=== PATIENT | male | born 1960 | race Native Hawaiian/Other Pacific Islander ===

== ENCOUNTER 2017-04-27 11:36 | Emergency (ER) | payer SELFPAY ==
--- NOTE | 2017-04-27 12:31 | Emergency Department Report ---
Chief Complaint: Medical Clearance Stated Complaint: ABD PAIN AFTER ETOH USE Time Seen by Provider: 04/27/17 12:28 - HPI History of Present Illness: PT states he drank 3 beers and ate food at a constitution party. PT reports abd pain and vomiting after. PT was seen by PCP and sent to ED to eval his liver due to jaundice - ROS Review of Systems: - eye pain - draiange PT denies abd pain now - Exam Vital Signs: Vital Signs 04/27/17 11:57 Temperature 97.4 F L Pulse Rate 94 H Respiratory 16 Rate Blood Pressure 123/78 O2 Sat by Pulse 97 Oximetry Physical Exam: abd rounded, not ttp MSE screening note: Focused history and physical exam performed. Due to findings the following was ordered: labs, us ED Disposition for MSE Condition: Stable
[2017-04-27 13:10] LABS: Basophils % (Auto) 0.1 % (0.0-1.8); Eosinophils % (Auto) 0.4 % (0.0-4.3); Hematocrit 46.9 % (35.5-45.6); Hemoglobin 15.8 gm/dl (11.8-15.2); Mean Corpuscular HGB Conc 34 % (32-34); Mean Corpuscular Hemoglobin 30 pg (28-32); Mean Corpuscular Volume 89 fl (84-94); Red Blood Count 5.28 M/mm3 (3.65-5.03); Red Cell Distribution Width 13.5 % (13.2-15.2); White Blood Count 10.3 K/mm3 (4.5-11.0)
[2017-04-27 13:27] LABS: Partial Thromboplastin Time 25.6 Sec. (24.2-36.6)
[2017-04-27 13:37] LABS: Alanine Aminotransferase 545 units/L (7-56); Albumin 3.9 g/dL (3.9-5); Albumin/Globulin Ratio 0.9 %; Alkaline Phosphatase 290 units/L (35-129); BUN/Creatinine Ratio 21; Blood Urea Nitrogen 17 mg/dL (9-20); Calcium 9.2 mg/dL (8.4-10.2); Carbon Dioxide 24 mmol/L (22-30); Glucose 107 mg/dL (75-100); Lipase 12 units/L (13-60); Sodium 137 mmol/L (137-145); Total Protein 8.1 g/dL (6.3-8.2)
[2017-04-27 13:38] LABS: Anion Gap 20 mmol/L; Chloride 96.3 mmol/L (98-107); Potassium 3.6 mmol/L (3.6-5.0)
[2017-04-27 13:59] LABS: Platelet Count 191 K/mm3 (140-440)
--- NOTE | 2017-04-27 14:46 | Ultrasound Report ---
Sonogram right upper quadrant: History: Jaundice. Findings: Patient is history of cholecystectomy. Liver appears normal. No intrahepatic or extrahepatic duct dilatation. Common bile duct diameter 1.6 mm. Right kidney 10.1 x 4.6 x 5 cm. Cortical thickness 1.2 cm. Pancreas not visualized. Impression: Essentially negative sonogram.
--- NOTE | 2017-04-28 01:26 | Emergency Department Report ---
ED General Adult HPI - General Chief complaint: Medical Clearance Stated complaint: ABD PAIN AFTER ETOH USE Time Seen by Provider: 04/27/17 12:28 Source: patient Mode of arrival: Ambulatory Limitations: Language Barrier (this provider is conversational in Korean) - History of Present Illness Initial comments: This is a 56-year-old male, who was previously unknown to this provider, sent to the ER by his outpatient physician for evaluation of hepatitis. Patient currently denies headache, neck pain, chest pain, abdominal pain or shortness of breath. He did reports previous abdominal pain which has since resolved. The pain was in the right upper quadrant, did not radiate anywhere, patient indicates no exacerbating or relieving factors. Patient endorses recreational alcohol consumption, but does not report consuming regularly, and he denies recent ingestion of acetaminophen. -: Gradual Radiation: abdomen Consistency: now resolved Improves with: none Worsens with: none Associated Symptoms: denies other symptoms - Related Data Previous Rx's Medication Instructions Recorded Last Taken Type Dicyclomine [Bentyl] 10 mg PO QID PRN #20 capsule 04/28/17 Unknown Rx Ondansetron [Zofran Odt] 4 mg PO Q6HR PRN #20 tab.rapdis 04/28/17 Unknown Rx Allergies Allergy/AdvReac Type Severity Reaction Status Date / Time No Known Allergies Allergy Verified 04/27/17 12:02 ED Review of Systems ROS: Stated complaint: ABD PAIN AFTER ETOH USE Other details as noted in HPI Constitutional: denies: fever Eyes: denies: vision change ENT: denies: epistaxis Respiratory: denies: cough, shortness of breath Cardiovascular: denies: chest pain Gastrointestinal: abdominal pain Genitourinary: denies: dysuria Musculoskeletal: denies: back pain Skin: denies: lesions Neurological: weakness Psychiatric: anxiety ED Past Medical Hx - Past Medical History Previous Medical History?: No - Surgical History Past Surgical History?: Yes Additional Surgical History: right lung - Social History Smoking Status: Never Smoker Substance Use Type: Alcohol - Medications Home Medications: Home Medications Medication Instructions Recorded Confirmed Last Taken Type Dicyclomine [Bentyl] 10 mg PO QID PRN #20 capsule 04/28/17 Unknown Rx Ondansetron [Zofran Odt] 4 mg PO Q6HR PRN #20 tab.rapdis 04/28/17 Unknown Rx ED Physical Exam - General Limitations: Language Barrier General appearance: alert, in no apparent distress, anxious - Head Head exam: Present: atraumatic, normocephalic - Eye Eye exam: Present: normal appearance, EOMI, scleral icterus. Absent: nystagmus - ENT ENT exam: Present: normal exam, normal orophraynx, mucous membranes moist, normal external ear exam - Neck Neck exam: Present: normal inspection, full ROM. Absent: tenderness, meningismus - Respiratory Respiratory exam: Present: normal lung sounds bilaterally. Absent: respiratory distress, wheezes, rales, rhonchi, stridor, chest wall tenderness, accessory muscle use, decreased breath sounds, prolonged expiratory - Cardiovascular Cardiovascular Exam: Present: regular rate, normal rhythm, normal heart sounds. Absent: bradycardia, tachycardia, irregular rhythm, systolic murmur, diastolic murmur, rubs, gallop - GI/Abdominal GI/Abdominal exam: Present: soft, tenderness, normal bowel sounds, other (right upper quadrant tenderness). Absent: distended, guarding, rebound, rigid, pulsatile mass - Rectal Rectal exam: Present: deferred - Extremities Exam Extremities exam: Present: normal inspection, full ROM, normal capillary refill. Absent: pedal edema, joint swelling, calf tenderness - Back Exam Back exam: Present: normal inspection, full ROM. Absent: tenderness, CVA tenderness (L), muscle spasm, paraspinal tenderness, vertebral tenderness - Neurological Exam Neurological exam: Present: alert, other (Extraocular movements intact. Tongue midline. No facial droop. Facial sensation intact to light touch in the V1, V2 , V3 distribution bilaterally. 5 and 5 strength in 4 extremities.. Sensation is intact to light touch in 4 extremities.). Absent: motor sensory deficit - Psychiatric Psychiatric exam: Present: normal affect, normal mood - Skin Skin exam: Present: warm, other (jaundiced). Absent: rash ED Course Vital Signs 04/27/17 04/28/17 04/28/17 11:57 01:52 01:55 Temperature 97.4 F L 98.6 F Pulse Rate 94 H 94 H Respiratory 16 16 16 Rate Blood Pressure 123/78 Blood Pressure 110/70 [Right] O2 Sat by Pulse 97 100 100 Oximetry - Reevaluation(s) Reevaluation #1: 04/28/17 03:55 CT scan of the abdomen and pelvis is negative, acetaminophen levels pending Reevaluation #2: 04/28/17 05:02 Tylenol level negative. Resting comfortably. No distress. Patient to be discharged with pain medication, nausea medication, instructions to follow up with primary care versus gastroenterology. Belly soft arm. Examination ED Medical Decision Making - Lab Data Result diagrams: 04/27/17 12:45 04/27/17 12:45 Vital Signs 04/27/17 04/28/17 04/28/17 11:57 01:52 01:55 Temperature 97.4 F L 98.6 F Pulse Rate 94 H 94 H Respiratory 16 16 16 Rate Blood Pressure 123/78 Blood Pressure 110/70 [Right] O2 Sat by Pulse 97 100 100 Oximetry Lab Results 04/27/17 04/27/17 04/27/17 Range/Units 12:45 12:45 12:45 WBC 10.3 (4.5-11.0) K/mm3 RBC 5.28 H (3.65-5.03) M/mm3 Hgb 15.8 H (11.8-15.2) gm/dl Hct 46.9 H (35.5-45.6) % MCV 89 (84-94) fl MCH 30 (28-32) pg MCHC 34 (32-34) % RDW 13.5 (13.2-15.2) % Plt Count 191 (140-440) K/mm3 Lymph % (Auto) 7.6 L (13.4-35.0) % Ritchie % (Auto) 11.1 H (0.0-7.3) % Eos % (Auto) 0.4 (0.0-4.3) % Baso % (Auto) 0.1 (0.0-1.8) % Lymph # 0.8 L (1.2-5.4) K/mm3 Ritchie # 1.2 H (0.0-0.8) K/mm3 Eos # 0.0 (0.0-0.4) K/mm3 Baso # 0.0 (0.0-0.1) K/mm3 Seg Neutrophils % 80.8 H (40.0-70.0) % Seg Neutrophils # 8.4 H (1.8-7.7) K/mm3 PT 13.7 (12.2-14.9) Sec. INR 1.00 (0.87-1.13) APTT 25.6 (24.2-36.6) Sec. Sodium 137 (137-145) mmol/L Potassium 3.6 (3.6-5.0) mmol/L Chloride 96.3 L (98-107) mmol/L Carbon Dioxide 24 (22-30) mmol/L Anion Gap 20 mmol/L BUN 17 (9-20) mg/dL Creatinine 0.8 (0.8-1.5) mg/dL Estimated GFR > 60 ml/min BUN/Creatinine Ratio 21 % Glucose 107 H (75-100) mg/dL Calcium 9.2 (8.4-10.2) mg/dL Total Bilirubin 6.50 H (0.1-1.2) mg/dL AST 85 H (5-40) units/L ALT 545 H (7-56) units/L Alkaline Phosphatase 290 H (35-129) units/L Total Protein 8.1 (6.3-8.2) g/dL Albumin 3.9 (3.9-5) g/dL Albumin/Globulin Ratio 0.9 % Lipase 12 L (13-60) units/L Hepatitis A IgM Ab (NonReactive) Hep Bs Antigen (Negative) Hep B Core IgM Ab (NonReactive) Hepatitis C Antibody (NonReactive) 04/27/17 Range/Units 14:52 WBC (4.5-11.0) K/mm3 RBC (3.65-5.03) M/mm3 Hgb (11.8-15.2) gm/dl Hct (35.5-45.6) % MCV (84-94) fl MCH (28-32) pg MCHC (32-34) % RDW (13.2-15.2) % Plt Count (140-440) K/mm3 Lymph % (Auto) (13.4-35.0) % Ritchie % (Auto) (0.0-7.3) % Eos % (Auto) (0.0-4.3) % Baso % (Auto) (0.0-1.8) % Lymph # (1.2-5.4) K/mm3 Ritchie # (0.0-0.8) K/mm3 Eos # (0.0-0.4) K/mm3 Baso # (0.0-0.1) K/mm3 Seg Neutrophils % (40.0-70.0) % Seg Neutrophils # (1.8-7.7) K/mm3 PT (12.2-14.9) Sec. INR (0.87-1.13) APTT (24.2-36.6) Sec. Sodium (137-145) mmol/L Potassium (3.6-5.0) mmol/L Chloride (98-107) mmol/L Carbon Dioxide (22-30) mmol/L Anion Gap mmol/L BUN (9-20) mg/dL Creatinine (0.8-1.5) mg/dL Estimated GFR ml/min BUN/Creatinine Ratio % Glucose (75-100) mg/dL Calcium (8.4-10.2) mg/dL Total Bilirubin (0.1-1.2) mg/dL AST (5-40) units/L ALT (7-56) units/L Alkaline Phosphatase (35-129) units/L Total Protein (6.3-8.2) g/dL Albumin (3.9-5) g/dL Albumin/Globulin Ratio % Lipase (13-60) units/L Hepatitis A IgM Ab Non-reactive (NonReactive) Hep Bs Antigen Non-reactive (Negative) Hep B Core IgM Ab Non-reactive (NonReactive) Hepatitis C Antibody Non-reactive (NonReactive) - Radiology Data Radiology results: report reviewed, image reviewed Vital precaution ultrasound negative for acute disease - Medical Decision Making Differential diagnosis: Hepatitis, idiopathic hepatitis, obstructive hepatitis, cancer/tumor/malignancy Assessment and plan: 56-year-old male with jaundice, abdominal discomfort, now resolved, transaminitis that is elevated, elevated direct bilirubin, minimal tenderness at this time, CT scan of the abdomen and pelvis is pending. Patient will be treated with nonnarcotic pain medication at this time. Patient does report taking omeprazole, he is a casual alcohol consumer but not excessive, and denies acetaminophen intake. Critical care attestation.: If time is entered above; I have spent that time in minutes in the direct care of this critically ill patient, excluding procedure time. ED Disposition Clinical Impression: Transaminitis Disposition: DC-01 TO HOME OR SELFCARE Is pt being admited?: No Does the pt Need Aspirin: No Condition: Good Instructions: Viral Hepatitis C (ED) Additional Instructions: Follow up with a primary care doctor or portfolio consultant within the next 7-10 days. Take the pain medication and nausea medication as directed, avoid consumption of alcohol, and acetaminophen. Return to the ER right away with new pain, worsened pain, migration of pain, fevers, chills, lethargy, irritability, vomiting blood, defecating blood, inability to tolerate liquid feeds. Do not take Tylenol either. Seguimiento con un mdico de atencin primaria o gastroenterlogo dentro de los prximos 7-[address] huff. [place] el medicamento para el dolor y los medicamentos para las nuseas segn lo indicado, evite el consumo de alcohol y el paracetamol. Regreso al ER de inmediato con dolor nuevo, dolor empeorado, migracin de dolor , fiebres, escalofros, letargo, irritabilidad, vmitos de taryn, taryn defecante, incapacidad para tolerar alimentos lquidos. No tome Tylenol tampoco. Referrals: PRIMARY CAREMD [Primary Care Provider] - 3-5 Days FRANDY NAVA MD [Staff Physician] - 3-5 Days INGRID REDDING MD [Staff Physician] - 3-5 Days [facility] [Provider Group] - 3-5 Days [facility] [Provider Group] - 3-5 Days
[2017-04-28] MEDS ORDERED: NACL 0.9% 1000 ML 1,000 ML IV ONE (01:37)
[2017-04-28 01:54] VITALS: BP 110/70
[2017-04-28] MEDS ORDERED: BENTYL PO ONE (03:06)
[2017-04-28] MEDS ORDERED: CARAFATE PO ONE (03:06)
--- NOTE | 2017-04-28 03:36 | Cat Scan Report ---
FINAL REPORT EXAM: CT ABDOMEN PELVIS W CON HISTORY: painless jaundice TECHNIQUE: Routine axial imaging was obtained of the abdomen and pelvis following the intravenous injection of 100 cc of Omnipaque 350. Oral contrast was not administered. There are no previous studies available for comparison. FINDINGS: The lung bases do not show any localized infiltrates or effusions. The gallbladder has been removed. The common bile duct measures 8.8 millimeters in diameter. There is no evidence of intrahepatic ductal dilatation. In the left hepatic lobe there is an 8.5 millimeter low-attenuation focus. With this represents a small cyst or hemangioma is uncertain. It is too small to characterize. The spleen, adrenal glands and pancreas appear normal. The kidneys enhance normally. The vascular structures enhance normally. The bowel loops are normal in caliber. There is no evidence of free fluid or adenopathy. The appendix is not enlarged. In the pelvis there are a few uncomplicated sigmoid diverticula. The prostate gland and bladder appear normal. The skeletal structures reveal very mild arthritic changes in the lower lumbar spine. IMPRESSION: Cholecystectomy. No evidence of biliary tract obstruction. 0.5 millimeter low-attenuation focus in the left hepatic lobe possibly representing a small cyst or hemangioma. The lesion is too small to characterize. No acute process in the abdomen and pelvis otherwise.
[2017-04-28 03:45] LABS: Bilirubin,Direct 3.3 mg/dL (0-0.2); Bilirubin,Indirect 1.1 mg/dL; Bilirubin,Total 4.4 mg/dL (0.1-1.2)
[2017-04-28] MEDS ORDERED: NACL 0.9% 1000 ML 1,000 ML ONE (04:54)
== END 2017-04-28 06:20 | disposition home or self-care (01) ==
LOC: ED 11:36
DX: R74.0 Nonspecific elevation of levels of transaminase and lactic acid dehydrogenase [LDH] (principal); R10.9 Unspecified abdominal pain; Z79.899 Other long term (current) drug therapy
CPT/HCPCS: 36415; 74177; 76705; 80053; 80074; 82248; 83690; 85025; 85610; 85730; 96360; 99284; G0480; J7030; Q9967; 80320

== ENCOUNTER 2017-05-07 23:49 | Inpatient (IN) | payer OTHER ==
[2017-05-08 01:07] LABS: Hematocrit 40.7 % (35.5-45.6); Hemoglobin 13.8 gm/dl (11.8-15.2); Mean Corpuscular HGB Conc 34 % (32-34); Mean Corpuscular Hemoglobin 31 pg (28-32); Mean Corpuscular Volume 90 fl (84-94); Platelet Count 310 K/mm3 (140-440); Red Blood Count 4.51 M/mm3 (3.65-5.03); Red Cell Distribution Width 13.3 % (13.2-15.2); White Blood Count 12.8 K/mm3 (4.5-11.0)
[2017-05-08 01:26] LABS: Alanine Aminotransferase 636 units/L (7-56); Albumin 3.6 g/dL (3.9-5); Albumin/Globulin Ratio 1.1 %; Alkaline Phosphatase 359 units/L (35-129); Anion Gap 18 mmol/L; BUN/Creatinine Ratio 16; Blood Urea Nitrogen 11 mg/dL (9-20); Calcium 8.7 mg/dL (8.4-10.2); Carbon Dioxide 25 mmol/L (22-30); Chloride 100.3 mmol/L (98-107); Glucose 132 mg/dL (75-100); Lipase 121 units/L (13-60); Potassium 3.8 mmol/L (3.6-5.0); Sodium 139 mmol/L (137-145); Total Protein 6.8 g/dL (6.3-8.2)
[2017-05-08 05:35] LABS: Basophils % (Manual) 0 % (0.0-1.8); Blastocytes % (Manual) 0 %; Eosinophils % (Manual) 0 % (0.0-4.3)
[2017-05-08 05:36] LABS: Anisocytosis 1+; Diff Status Complete
[2017-05-08 08:59] LABS: Bilirubin,Urine MOD (Negative); Blood,Urine NEG (Negative); Ketones,Urine TR mg/dL (Negative); Leukocyte Esterase,Urine NEG (Negative); Mucus,Urine FEW /HPF; Nitrite,Urine NEG (Negative); Protein,Urine <15 mg/dL mg/dL (Negative); RBC,Urine < 1.0 /HPF (0.0-6.0)
[2017-05-08] MEDS ORDERED: MORPHINE IV ONE (10:12)
[2017-05-08] MEDS ORDERED: ZOFRAN IV ONE (10:12)
[2017-05-08] MEDS ORDERED: MORPHINE ONE (10:22)
--- NOTE | 2017-05-08 11:15 | Emergency Department Report ---
ED Abdominal Pain HPI - General Chief Complaint: Abdominal Pain Stated Complaint: ABD PAIN Time Seen by Provider: 05/08/17 09:44 Source: patient Mode of arrival: Stretcher Limitations: Language Barrier - History of Present Illness Initial Comments: 56-year-old Tanzanian-speaking male with a past medical history of previous cholecystectomy presents to the hospital complains of abdominal pain times several days. Pain is in epigastric area and left upper quadrant, intermittent , sharp, worse with palpation. Positive nausea without vomiting. Patient has noticed yellow discoloration to his eyes status continued since his last visit to the ED. Patient was here 10 days ago for abdominal pain and jaundice. Was seen and evaluated by ER physician. Patient was noted to have elevated LFTs including bilirubin. Pt denied tylenol use. CT abdomen and pelvis with IV contrast revealed previous cholecystectomy with no evidence of biliary tract obstruction, a 0.5 mm low attenuation focus in the left hepatic lobe possibly representing a small cyst or hemangioma. No acute process was identified. Abdominal ultrasound was negative. Patient had normal coags and platelet count. Patient also had a negative hepatitis panel. He states he had alcohol within the last 2 weeks to celebrate a friend's birthday but denies daily use or dependence. Patient received 1 L normal saline and 5 mg of morphine in route to the hospital. Severity scale (0 -10): 7 - Related Data Home Medications Medication Instructions Recorded Confirmed Last Taken No Known Home Medications [No 05/08/17 05/08/17 Unknown Reported Home Medications] Allergies Allergy/AdvReac Type Severity Reaction Status Date / Time No Known Allergies Allergy Verified 04/27/17 12:02 ED Review of Systems ROS: Stated complaint: ABD PAIN Other details as noted in HPI Comment: All other systems reviewed and negative Other: Constitutional: No fevers chills Eyes yellow eyes ENT: No ear pain or throat pain Neck: Denies pain Respiratory: Denies cough wheezing shortness of breath Cardiovascular: Denies chest pain GI: As per HPI : Denies dysuria Musculoskeletal: Denies back pain Skin: Denies rash, lesions, erythema Neurologic: Denies headache, numbness, weakness Psychiatric: Denies suicidal ideation, hallucinations ED Past Medical Hx - Past Medical History Previous Medical History?: No - Surgical History Past Surgical History?: Yes Hx Cholecystectomy: Yes Additional Surgical History: Abdominal Hernia, - Social History Smoking Status: Never Smoker Substance Use Type: None - Medications Home Medications: Home Medications Medication Instructions Recorded Confirmed Last Taken Type No Known Home Medications [No 05/08/17 05/08/17 Unknown History Reported Home Medications] ED Physical Exam - General Limitations: No Limitations - Other Other exam information: General: No limitations, patient is alert in no acute distress Head exam: Atraumatic, normocephalic Eyes exam: Icteric sclerae ENT: Moist mucous membrane, normal oropharynx Neck exam: Normal inspection, full range of motion, no meningismus nontender Respiratory exam: Clear to auscultation bilateral, no wheezes, rales, crackles Cardiovascular: Normal rate and rhythm, normal heart sounds Abdomen: Soft, nondistended, epigastric tenderness, mild upper quadrant tenderness, with normal bowel sounds, no rebound, or guarding Extremity: Full range of motion normal inspection no deformity Back: Normal Inspection, full range of motion, no tenderness Neurologic: Alert, oriented x3, cranial nerves intact, no motor or sensory deficit Psychiatric: normal affect, normal mood Skin: Warm, dry, intact ED Course Vital Signs 05/08/17 05/08/17 05/08/17 00:17 04:07 08:24 Temperature 98 F 98.2 F 98.4 F Pulse Rate 64 90 84 Respiratory 16 16 16 Rate Blood Pressure 96/63 106/60 Blood Pressure 96/63 120/54 [Left] O2 Sat by Pulse 100 97 100 Oximetry 05/08/17 11:26 Temperature 98.2 F Pulse Rate 74 Respiratory 16 Rate Blood Pressure Blood Pressure 106/68 [Left] O2 Sat by Pulse 97 Oximetry - Reevaluation(s) Reevaluation #1: 05/08/17 13:03 patient received morphine prior to arrival and additional morphine and Zofran ED - Consultations Consultation #1: 05/08/17 11:00 Case discussed with field education coordinator GI doctor Dr. Haque, recommends to consider autoimmune hepatitis, and YUE, and add MRCP ED Medical Decision Making - Lab Data Result diagrams: 05/08/17 00:47 05/08/17 00:47 Lab Results 05/08/17 05/08/17 05/08/17 Range/Units 00:47 00:47 11:19 WBC 12.8 H (4.5-11.0) K/mm3 RBC 4.51 (3.65-5.03) M/mm3 Hgb 13.8 (11.8-15.2) gm/dl Hct 40.7 (35.5-45.6) % MCV 90 (84-94) fl MCH 31 (28-32) pg MCHC 34 (32-34) % RDW 13.3 (13.2-15.2) % Plt Count 310 (140-440) K/mm3 Add Manual Diff Complete Total Counted 100 Seg Neutrophils % Video Engineer Seg Neuts % (Manual) 85.0 H (40.0-70.0) % Band Neutrophils % 4.0 % Lymphocytes % (Manual) 9.0 L (13.4-35.0) % Reactive Lymphs % (Man) 0 % Monocytes % (Manual) 2.0 (0.0-7.3) % Eosinophils % (Manual) 0 (0.0-4.3) % Basophils % (Manual) 0 (0.0-1.8) % Metamyelocytes % 0 % Myelocytes % 0 % Promyelocytes % 0 % Blast Cells % 0 % Nucleated RBC % Not Reportable Seg Neutrophils # Man 10.9 H (1.8-7.7) K/mm3 Band Neutrophils # 0.5 K/mm3 Lymphocytes # (Manual) 1.2 (1.2-5.4) K/mm3 Abs React Lymphs (Man) 0.0 K/mm3 Monocytes # (Manual) 0.3 (0.0-0.8) K/mm3 Eosinophils # (Manual) 0.0 (0.0-0.4) K/mm3 Basophils # (Manual) 0.0 (0.0-0.1) K/mm3 Metamyelocytes # 0.0 K/mm3 Myelocytes # 0.0 K/mm3 Promyelocytes # 0.0 K/mm3 Blast Cells # 0.0 K/mm3 WBC Morphology Not Reportable Hypersegmented Neuts Not Reportable Hyposegmented Neuts Not Reportable Hypogranular Neuts Not Reportable Smudge Cells Not Reportable Toxic Granulation Not Reportable Toxic Vacuolation Not Reportable Dohle Bodies Not Reportable Pelger-Huet Anomaly Not Reportable Niurka Rods Not Reportable Platelet Estimate Appears normal Clumped Platelets Not Reportable Plt Clumps, EDTA Not Reportable Large Platelets Not Reportable Giant Platelets Not Reportable Platelet Satelliting Not Reportable Plt Morphology Comment Not Reportable RBC Morphology Not Reportable Dimorphic RBCs Not Reportable Polychromasia Not Reportable Hypochromasia Not Reportable Poikilocytosis Not Reportable Anisocytosis 1+ Microcytosis Not Reportable Macrocytosis Not Reportable Spherocytes Not Reportable Pappenheimer Bodies Not Reportable Sickle Cells Not Reportable Target Cells Not Reportable Tear Drop Cells Not Reportable Ovalocytes Not Reportable Helmet Cells Not Reportable Lucia-Ashburn Bodies Not Reportable Hamilton Rings Not Reportable [place] Cells Not Reportable Bite Cells Not Reportable Crenated Cell Not Reportable Elliptocytes Not Reportable Acanthocytes (Spur) Not Reportable Rouleaux Not Reportable Hemoglobin C Crystals Not Reportable Schistocytes Not Reportable Malaria parasites Not Reportable Nithin Bodies Not Reportable Hem Pathologist Commnt No PT 15.3 H (12.2-14.9) Sec. INR 1.15 H (0.87-1.13) APTT 26.7 (24.2-36.6) Sec. Sodium 139 (137-145) mmol/L Potassium 3.8 (3.6-5.0) mmol/L Chloride 100.3 (98-107) mmol/L Carbon Dioxide 25 (22-30) mmol/L Anion Gap 18 mmol/L BUN 11 (9-20) mg/dL Creatinine 0.7 L (0.8-1.5) mg/dL Estimated GFR > 60 ml/min BUN/Creatinine Ratio 16 % Glucose 132 H (75-100) mg/dL Calcium 8.7 (8.4-10.2) mg/dL Total Bilirubin 5.00 H (0.1-1.2) mg/dL AST 387 H (5-40) units/L ALT 636 H (7-56) units/L Alkaline Phosphatase 359 H (35-129) units/L Total Protein 6.8 (6.3-8.2) g/dL Albumin 3.6 L (3.9-5) g/dL Albumin/Globulin Ratio 1.1 % Lipase 121 H (13-60) units/L Urine Color (Yellow) Urine Turbidity (Clear) Urine pH (5.0-7.0) Ur Specific [place] (1.003-1.030) Urine Protein (Negative) mg/dL Urine Glucose (UA) (Negative) mg/dL Urine Ketones (Negative) mg/dL Urine Blood (Negative) Urine Nitrite (Negative) Urine Bilirubin (Negative) Urine Ictotest (Negative) Urine Urobilinogen (<2.0) mg/dL Ur Leukocyte Esterase (Negative) Urine WBC (Auto) (0.0-6.0) /HPF Urine RBC (Auto) (0.0-6.0) /HPF U Epithel Cells (Auto) (0-13.0) /HPF Urine Mucus /HPF 05/08/17 Range/Units Unknown WBC (4.5-11.0) K/mm3 RBC (3.65-5.03) M/mm3 Hgb (11.8-15.2) gm/dl Hct (35.5-45.6) % MCV (84-94) fl MCH (28-32) pg MCHC (32-34) % RDW (13.2-15.2) % Plt Count (140-440) K/mm3 Add Manual Diff Total Counted Seg Neutrophils % Seg Neuts % (Manual) (40.0-70.0) % Band Neutrophils % % Lymphocytes % (Manual) (13.4-35.0) % Reactive Lymphs % (Man) % Monocytes % (Manual) (0.0-7.3) % Eosinophils % (Manual) (0.0-4.3) % Basophils % (Manual) (0.0-1.8) % Metamyelocytes % % Myelocytes % % Promyelocytes % % Blast Cells % % Nucleated RBC % Seg Neutrophils # Man (1.8-7.7) K/mm3 Band Neutrophils # K/mm3 Lymphocytes # (Manual) (1.2-5.4) K/mm3 Abs React Lymphs (Man) K/mm3 Monocytes # (Manual) (0.0-0.8) K/mm3 Eosinophils # (Manual) (0.0-0.4) K/mm3 Basophils # (Manual) (0.0-0.1) K/mm3 Metamyelocytes # K/mm3 Myelocytes # K/mm3 Promyelocytes # K/mm3 Blast Cells # K/mm3 WBC Morphology Hypersegmented Neuts Hyposegmented Neuts Hypogranular Neuts Smudge Cells Toxic Granulation Toxic Vacuolation Dohle Bodies Pelger-Huet Anomaly Niurka Rods Platelet Estimate Clumped Platelets Plt Clumps, EDTA Large Platelets Giant Platelets Platelet Satelliting Plt Morphology Comment RBC Morphology Dimorphic RBCs Polychromasia Hypochromasia Poikilocytosis Anisocytosis Microcytosis Macrocytosis Spherocytes Pappenheimer Bodies Sickle Cells Target Cells Tear Drop Cells Ovalocytes Helmet Cells Lucia-Ashburn Bodies Hamilton Rings Hannah Cells Bite Cells Crenated Cell Elliptocytes Acanthocytes (Spur) Rouleaux Hemoglobin C Crystals Schistocytes Malaria parasites Nithin Bodies Hem Pathologist Commnt PT (12.2-14.9) Sec. INR (0.87-1.13) APTT (24.2-36.6) Sec. Sodium (137-145) mmol/L Potassium (3.6-5.0) mmol/L Chloride (98-107) mmol/L Carbon Dioxide (22-30) mmol/L Anion Gap mmol/L BUN (9-20) mg/dL Creatinine (0.8-1.5) mg/dL Estimated GFR ml/min BUN/Creatinine Ratio % Glucose (75-100) mg/dL Calcium (8.4-10.2) mg/dL Total Bilirubin (0.1-1.2) mg/dL AST (5-40) units/L ALT (7-56) units/L Alkaline Phosphatase (35-129) units/L Total Protein (6.3-8.2) g/dL Albumin (3.9-5) g/dL Albumin/Globulin Ratio % Lipase (13-60) units/L Urine Color Indira (Yellow) Urine Turbidity Clear (Clear) Urine pH 5.0 (5.0-7.0) Ur Specific [place] 1.017 (1.003-1.030) Urine Protein <15 mg/dl (Negative) mg/dL Urine Glucose (UA) Neg (Negative) mg/dL Urine Ketones Tr (Negative) mg/dL Urine Blood Neg (Negative) Urine Nitrite Neg (Negative) Urine Bilirubin Mod (Negative) Urine Ictotest Positive (Negative) Urine Urobilinogen 2.0 (<2.0) mg/dL Ur Leukocyte Esterase Neg (Negative) Urine WBC (Auto) 1.0 (0.0-6.0) /HPF Urine RBC (Auto) < 1.0 (0.0-6.0) /HPF U Epithel Cells (Auto) < 1.0 (0-13.0) /HPF Urine Mucus Few /HPF - Medical Decision Making Patient has elevated LFTs with an identified cause after ED workup. Patient will be admitted to the hospital for GI consultation and further testing. - Differential Diagnosis autoimmune hepatitis, biliary obstruction Critical Care Time: No Critical care attestation.: If time is entered above; I have spent that time in minutes in the direct care of this critically ill patient, excluding procedure time. ED Disposition Clinical Impression: Transaminitis, Epigastric pain, Hyperbilirubinemia Disposition: OP ADMIT IP TO THIS HOSP Is pt being admited?: Yes Condition: Stable Time of Disposition: 11:13 (Dr Gonzalez/hosp)
[2017-05-08 11:56] LABS: INR 1.15 (0.87-1.13)
[2017-05-08 11:57] LABS: Partial Thromboplastin Time 26.7 Sec. (24.2-36.6)
--- NOTE | 2017-05-08 15:12 | Magnetic Resonance Report ---
FINAL REPORT PROCEDURE: MR ABDOMEN MRCP TECHNIQUE: Magnetic resonance cholangiopancreatography of the biliary system was performed without paramagnetic contrast. The original data was reconstructed in 3-dimensions. HISTORY: elevated lft's previous cholecystectomy COMPARISON: CT 04/28/2017 FINDINGS: There is patient motion artifact. Liver: Focal low-attenuation lesion seen in the anterior left hepatic lobe is not well resolved on this exam Intrahepatic bile ducts: Normal. Extrahepatic bile ducts: Common bile duct measures up to 11 millimeters in caliber. Although evaluation is somewhat limited due to motion, no filling defects are identified. Gallbladder: Absent Pancreatic ducts: Normal caliber. Bile duct filling defects: None. IMPRESSION: Common bile duct measures up to 11 millimeters in caliber. This may be dilated due to prior cholecystectomy. No filling defects are seen.
--- NOTE | 2017-05-08 16:06 | History and Physical Report ---
History of Present Illness Date of examination: 05/08/17 Date of admission: 05/08/17 11:15 Chief complaint: CC: Abdominal pain 2 weeks History of present illness: - History of Present Illness Initial Comments: 56-year-old [place]-speaking male with a past medical history of previous cholecystectomy presents to the hospital complains of abdominal pain several days. Pain is in epigastric area and left upper quadrant, intermittent, sharp, worse with palpation. Positive nausea without vomiting. Patient has noticed yellow discoloration to his eyes status continued since his last visit to the ED. Patient was here 10 days ago for abdominal pain and jaundice. Was seen and evaluated by ER physician. Patient was noted to have elevated LFTs including bilirubin. Pt denied tylenol use. CT abdomen and pelvis with IV contrast revealed previous cholecystectomy with no evidence of biliary tract obstruction, a 0.5 mm low attenuation focus in the left hepatic lobe possibly representing a small cyst or hemangioma. No acute process was identified. Abdominal ultrasound was negative. Patient had normal coags and platelet count. Patient also had a negative hepatitis panel. He states he had alcohol within the last 2 weeks to celebrate a friend's birthday but denies daily use or dependence. Patient received 1 L normal saline and 5 mg of morphine in route to the hospital. Severity scale (0 -10): 7 Past Medical History Previous Medical History?: No Surgical History Past Surgical History?: Yes Hx Cholecystectomy: Yes Additional Surgical History: Abdominal Hernia, Social History Smoking Status: Never Smoker Substance Use Type: None Medications Home Medications: Fam hx No contributory Home Medications Medication Instructions Recorded Confirmed Last Taken Type No Known Home Medications [No 05/08/17 05/08/17 Unknown History Reported Home Medications] Review of Systems Stated complaint: ABD PAIN Other details as noted in HPI Comment: All other systems reviewed and negative Other: Constitutional: No fevers chills Eyes yellow eyes ENT: No ear pain or throat pain Neck: Denies pain Respiratory: Denies cough wheezing shortness of breath Cardiovascular: Denies chest pain GI: As per HPI : Denies dysuria Musculoskeletal: Denies back pain Skin: Denies rash, lesions, erythema Neurologic: Denies headache, numbness, weakness Psychiatric: Denies suicidal ideation, hallucinations Medications and Allergies Allergies Allergy/AdvReac Type Severity Reaction Status Date / Time No Known Allergies Allergy Verified 04/27/17 12:02 Home Medications Medication Instructions Recorded Confirmed Last Taken Type No Known Home Medications [No 05/08/17 05/08/17 Unknown History Reported Home Medications] Exam - Physical Exam Narrative exam: Lying comfortably - Constitutional Vitals: Temp Pulse Resp BP Pulse Ox 98.2 F 84 18 110/70 97 05/08/17 11:26 05/08/17 13:27 05/08/17 13:27 05/08/17 13:27 05/08/17 13:27 General appearance: Present: no acute distress, well-nourished - EENT Eyes: Present: PERRL, scleral icterus ENT: hearing intact, clear oral mucosa - Neck Neck: Present: supple, normal ROM - Respiratory Respiratory effort: normal Respiratory: bilateral: CTA - Cardiovascular Heart rate: 80 Rhythm: regular Heart Sounds: Present: S1 & S2. Absent: rub, click - Extremities Extremities: no ischemia, pulses intact, pulses symmetrical, No edema Peripheral Pulses: within normal limits - Abdominal General gastrointestinal: Present: soft, non-tender, non-distended, normal bowel sounds Male genitourinary: Present: normal - Rectal Rectal Exam: deferred - Integumentary Integumentary: Present: clear, warm, dry - Musculoskeletal Musculoskeletal: gait normal, strength equal bilaterally - Psychiatric Psychiatric: appropriate mood/affect, intact judgment & insight - Neurologic Neurologic: CNII-XII intact, moves all extremities - Allied Health Allied health notes reviewed: nursing, case management Results - Labs CBC & Chem 7: 05/09/17 05:00 05/08/17 00:47 Labs: Laboratory Last Values WBC 12.8 K/mm3 (4.5-11.0) H 05/08/17 00:47 RBC 4.51 M/mm3 (3.65-5.03) 05/08/17 00:47 Hgb 13.8 gm/dl (11.8-15.2) 05/08/17 00:47 Hct 40.7 % (35.5-45.6) 05/08/17 00:47 MCV 90 fl (84-94) 05/08/17 00:47 MCH 31 pg (28-32) 05/08/17 00:47 MCHC 34 % (32-34) 05/08/17 00:47 RDW 13.3 % (13.2-15.2) 05/08/17 00:47 Plt Count 310 K/mm3 (140-440) 05/08/17 00:47 Add Manual Diff Complete 05/08/17 00:47 Total Counted 100 10 00:47 Seg Neutrophils % Rotoprinter 05/08/17 00:47 Seg Neuts % (Manual) 85.0 % (40.0-70.0) H 10 00:47 Band Neutrophils % 4.0 % 05/08/17 00:47 Lymphocytes % (Manual) 9.0 % (13.4-35.0) L 10 00:47 Reactive Lymphs % (Man) 0 % 05/08/17 00:47 Monocytes % (Manual) 2.0 % (0.0-7.3) 05/08/17 00:47 Eosinophils % (Manual) 0 % (0.0-4.3) 05/08/17 00:47 Basophils % (Manual) 0 % (0.0-1.8) 05/08/17 00:47 Metamyelocytes % 0 % 05/08/17 00:47 Myelocytes % 0 % 05/08/17 00:47 Promyelocytes % 0 % 05/08/17 00:47 Blast Cells % 0 % 05/08/17 00:47 Nucleated RBC % Not Reportable 05/08/17 00:47 Seg Neutrophils # Man 10.9 K/mm3 (1.8-7.7) H 05/08/17 00:47 Band Neutrophils # 0.5 K/mm3 05/08/17 00:47 Lymphocytes # (Manual) 1.2 K/mm3 (1.2-5.4) 05/08/17 00:47 Abs React Lymphs (Man) 0.0 K/mm3 05/08/17 00:47 Monocytes # (Manual) 0.3 K/mm3 (0.0-0.8) 05/08/17 00:47 Eosinophils # (Manual) 0.0 K/mm3 (0.0-0.4) 05/08/17 00:47 Basophils # (Manual) 0.0 K/mm3 (0.0-0.1) 05/08/17 00:47 Metamyelocytes # 0.0 K/mm3 05/08/17 00:47 Myelocytes # 0.0 K/mm3 05/08/17 00:47 Promyelocytes # 0.0 K/mm3 05/08/17 00:47 Blast Cells # 0.0 K/mm3 05/08/17 00:47 WBC Morphology Not Reportable 05/08/17 00:47 Hypersegmented Neuts Not Reportable 05/08/17 00:47 Hyposegmented Neuts Not Reportable 05/08/17 00:47 Hypogranular Neuts Not Reportable 05/08/17 00:47 Smudge Cells Not Reportable 05/08/17 00:47 Toxic Granulation Not Reportable 05/08/17 00:47 Toxic Vacuolation Not Reportable 05/08/17 00:47 Dohle Bodies Not Reportable 05/08/17 00:47 Pelger-Huet Anomaly Not Reportable 05/08/17 00:47 Niurka Rods Not Reportable 05/08/17 00:47 Platelet Estimate Appears normal 05/08/17 00:47 Clumped Platelets Not Reportable 05/08/17 00:47 Plt Clumps, EDTA Not Reportable 05/08/17 00:47 Large Platelets Not Reportable 05/08/17 00:47 Giant Platelets Not Reportable 05/08/17 00:47 Platelet Satelliting Not Reportable 05/08/17 00:47 Plt Morphology Comment Not Reportable 05/08/17 00:47 RBC Morphology Not Reportable 05/08/17 00:47 Dimorphic RBCs Not Reportable 05/08/17 00:47 Polychromasia Not Reportable 05/08/17 00:47 Hypochromasia Not Reportable 05/08/17 00:47 Poikilocytosis Not Reportable 05/08/17 00:47 Anisocytosis 1+ 05/08/17 00:47 Microcytosis Not Reportable 05/08/17 00:47 Macrocytosis Not Reportable 05/08/17 00:47 Spherocytes Not Reportable 05/08/17 00:47 Pappenheimer Bodies Not Reportable 05/08/17 00:47 Sickle Cells Not Reportable 05/08/17 00:47 Target Cells Not Reportable 05/08/17 00:47 Tear Drop Cells Not Reportable 05/08/17 00:47 Ovalocytes Not Reportable 05/08/17 00:47 Helmet Cells Not Reportable 05/08/17 00:47 [place] Bodies Not Reportable 05/08/17 00:47 [place] Rings Not Reportable 05/08/17 00:47 [place] Cells Not Reportable 05/08/17 00:47 Bite Cells Not Reportable 05/08/17 00:47 Crenated Cell Not Reportable 05/08/17 00:47 Elliptocytes Not Reportable 05/08/17 00:47 Acanthocytes (Spur) Not Reportable 05/08/17 00:47 Rouleaux Not Reportable 05/08/17 00:47 Hemoglobin C Crystals Not Reportable 05/08/17 00:47 Schistocytes Not Reportable 05/08/17 00:47 Malaria parasites Not Reportable 05/08/17 00:47 Nithin Bodies Not Reportable 05/08/17 00:47 Hem Pathologist Commnt No 05/08/17 00:47 PT 15.3 Sec. (12.2-14.9) H 05/08/17 11:19 INR 1.15 (0.87-1.13) H 05/08/17 11:19 APTT 26.7 Sec. (24.2-36.6) 05/08/17 11:19 Sodium 139 mmol/L (137-145) 05/08/17 00:47 Potassium 3.8 mmol/L (3.6-5.0) 05/08/17 00:47 Chloride 100.3 mmol/L (98-107) 05/08/17 00:47 Carbon Dioxide 25 mmol/L (22-30) 05/08/17 00:47 Anion Gap 18 mmol/L 05/08/17 00:47 BUN 11 mg/dL (9-20) 05/08/17 00:47 Creatinine 0.7 mg/dL (0.8-1.5) L 05/08/17 00:47 Estimated GFR > 60 ml/min 05/08/17 00:47 BUN/Creatinine Ratio 16 % 05/08/17 00:47 Glucose 132 mg/dL (75-100) H 05/08/17 00:47 Calcium 8.7 mg/dL (8.4-10.2) 05/08/17 00:47 Total Bilirubin 5.00 mg/dL (0.1-1.2) H 05/08/17 00:47 AST 387 units/L (5-40) H 05/08/17 00:47 ALT 636 units/L (7-56) H 05/08/17 00:47 Alkaline Phosphatase 359 units/L (35-129) H 05/08/17 00:47 Total Protein 6.8 g/dL (6.3-8.2) 05/08/17 00:47 Albumin 3.6 g/dL (3.9-5) L 05/08/17 00:47 Albumin/Globulin Ratio 1.1 % 05/08/17 00:47 Lipase 121 units/L (13-60) H 05/08/17 00:47 Urine Color Indira (Yellow) 05/08/17 Unknown Urine Turbidity Clear (Clear) 05/08/17 Unknown Urine pH 5.0 (5.0-7.0) 05/08/17 Unknown Ur Specific [place] 1.017 (1.003-1.030) 05/08/17 Unknown Urine Protein <15 mg/dl mg/dL (Negative) 05/08/17 Unknown Urine Glucose (UA) Neg mg/dL (Negative) 05/08/17 Unknown Urine Ketones Tr mg/dL (Negative) 05/08/17 Unknown Urine Blood Neg (Negative) 05/08/17 Unknown Urine Nitrite Neg (Negative) 05/08/17 Unknown Urine Bilirubin Mod (Negative) 05/08/17 Unknown Urine Ictotest Positive (Negative) 05/08/17 Unknown Urine Urobilinogen 2.0 mg/dL (<2.0) 05/08/17 Unknown Ur Leukocyte Esterase Neg (Negative) 05/08/17 Unknown Urine WBC (Auto) 1.0 /HPF (0.0-6.0) 05/08/17 Unknown Urine RBC (Auto) < 1.0 /HPF (0.0-6.0) 05/08/17 Unknown U Epithel Cells (Auto) < 1.0 /HPF (0-13.0) 05/08/17 Unknown Urine Mucus Few /HPF 05/08/17 Unknown Short CBC 05/08/17 05/09/17 Range/Units 00:47 05:00 WBC 12.8 H 8.8 (4.5-11.0) K/mm3 Hgb 13.8 13.7 (11.8-15.2) gm/dl Hct 40.7 40.8 (35.5-45.6) % Plt Count 310 295 (140-440) K/mm3 BMP 05/09/17 05:00 Sodium 139 Potassium 4.8 D Chloride 99.9 Carbon Dioxide 27 BUN 13 Creatinine 0.7 L Glucose 77 Calcium 8.7 Liver Function 05/09/17 Range/Units 05:00 Total Bilirubin 2.60 H (0.1-1.2) mg/dL AST 109 H (5-40) units/L ALT 408 H (7-56) units/L Alkaline Phosphatase 342 H (35-129) units/L Albumin 3.3 L (3.9-5) g/dL Urine 05/08/17 Range/Units Unknown Urine Color Indira (Yellow) Urine pH 5.0 (5.0-7.0) Ur Specific [place] 1.017 (1.003-1.030) Urine Protein <15 mg/dl (Negative) mg/dL Urine Glucose (UA) Neg (Negative) mg/dL - Imaging and Cardiology Imaging and Cardiology: MRCP CBD 11 mm - Maybe dilated due to previous Cholecystectomy Assessment and Plan Advance Directives: Yes (Full code) - Patient Problems (1) Transaminitis Current Visit: Yes Status: Acute Plan to address problem: Probably sec to CBD obstruction.GI consulted.Stricture versus stone in CBD. (2) Common bile duct (CBD) obstruction Current Visit: Yes Status: Acute Plan to address problem: Stone versus stricture?/.Will defer to Gi ERCP??? (3) DVT prophylaxis Current Visit: Yes Status: Acute Plan to address problem: scd's
[2017-05-08] MEDS ORDERED: DULCOLAX PR PRN (16:07)
[2017-05-08] MEDS ORDERED: TYLENOL PO PRN (16:07)
[2017-05-08] MEDS ORDERED: MILK OF MAGNESIA PO PRN (16:07)
[2017-05-08] MEDS ORDERED: PERCOCET 5/325 PO PRN (16:07)
[2017-05-08] MEDS ORDERED: MORPHINE IV PRN (16:07)
[2017-05-08] MEDS ORDERED: ZOFRAN IV PRN (16:07)
--- NOTE | 2017-05-08 16:16 | Consultation ---
History of Present Illness - Reason for Consult Consult date: 05/08/17 Elevated LFTs Medications and Allergies Allergies Allergy/AdvReac Type Severity Reaction Status Date / Time No Known Allergies Allergy Verified 04/27/17 12:02 Home Medications Medication Instructions Recorded Confirmed Last Taken Type No Known Home Medications [No 05/08/17 05/08/17 Unknown History Reported Home Medications] Active Meds: Active Medications Acetaminophen (Tylenol) 650 mg PO Q4H PRN PRN Reason: Pain MILD(1-3)/Fever >100.5/PADILLA Bisacodyl (Dulcolax) 10 mg VA QDAY PRN PRN Reason: Constipation unrelieved by MOM Dextrose/Sodium Chloride (D5ns) 1,000 mls @ 100 mls/hr IV DIRECT JUANCARLOS Magnesium Hydroxide (Milk Of Magnesia) 30 ml PO Q4H PRN PRN Reason: Constipation Morphine Sulfate (Morphine) 2 mg IV Q4H PRN PRN Reason: Pain, Moderate (4-6) Ondansetron HCl (Zofran) 4 mg IV Q8H PRN PRN Reason: N/V unrelieved by Reglan Oxycodone/Acetaminophen (Percocet 5/325) 1 tab PO Q6H PRN PRN Reason: Pain, Moderate (4-6) Exam - Constitutional Vitals: Temp Pulse Resp BP Pulse Ox 98.2 F 84 18 110/70 97 05/08/17 11:26 05/08/17 13:27 05/08/17 13:27 05/08/17 13:27 05/08/17 13:27 Results - Labs CBC & Chem 7: 05/08/17 00:47 05/08/17 00:47 Labs: Abnormal lab results 05/08/17 Range/Units 11:19 PT 15.3 H (12.2-14.9) Sec. INR 1.15 H (0.87-1.13) Assessment and Plan Pt seen and examined. Unable to get hx due to language barrier, but discussed with Dr. Sanders, and data reviewed. Suspicious for biliary obstruction. MRCP recommended.
[2017-05-08] MEDS ORDERED: D5NS 1,000 ML IV ONE (16:52)
[2017-05-08] MEDS: D5NS 1,000 ML IV SCH (17:00)
[2017-05-08] MEDS: PROTONIX IV SCH (22:40)
[2017-05-09 06:03] LABS: Basophils % (Auto) 0.2 % (0.0-1.8); Eosinophils % (Auto) 1.1 % (0.0-4.3); Hematocrit 40.8 % (35.5-45.6); Hemoglobin 13.7 gm/dl (11.8-15.2); Mean Corpuscular HGB Conc 34 % (32-34); Mean Corpuscular Hemoglobin 30 pg (28-32); Mean Corpuscular Volume 91 fl (84-94); Platelet Count 295 K/mm3 (140-440); Red Cell Distribution Width 13.5 % (13.2-15.2); White Blood Count 8.8 K/mm3 (4.5-11.0)
[2017-05-09 06:12] LABS: Alanine Aminotransferase 408 units/L (7-56); Albumin 3.3 g/dL (3.9-5); Albumin/Globulin Ratio 0.9 %; Alkaline Phosphatase 342 units/L (35-129); Anion Gap 17 mmol/L; BUN/Creatinine Ratio 19; Blood Urea Nitrogen 13 mg/dL (9-20); Calcium 8.7 mg/dL (8.4-10.2); Carbon Dioxide 27 mmol/L (22-30); Chloride 99.9 mmol/L (98-107); Glucose 77 mg/dL (75-100); Potassium 4.8 mmol/L (3.6-5.0); Sodium 139 mmol/L (137-145); Total Protein 6.8 g/dL (6.3-8.2)
--- NOTE | 2017-05-09 11:42 | Progress Note ---
Assessment and Plan Assessment and plan: 56-year-old male presented to the emergency department complaining of epigastric pain and jaundice Suspected Common bile duct obstruction Elevated transaminitis Hyper bilirubinemia - Common bile duct is dilated - Transaminitis, alkaline phosphatase, bilirubin is trending down - Epigastric Pain is resolving - MRCP shows CBD dilation DVT prophylaxis - SCDs because of the mild elevation of INR Disposition - per GI History Interval history: Patient was seen and evaluated this morning, patient was not in obvious pain or distress, patient speaks [place]. Hospitalist Physical - Physical exam Narrative exam: Not in cardiopulmonary distress. The patient appeared well nourished and normally developed. Vital signs as documented. Head exam is unremarkable. No scleral icterus . Neck is without jugular venous distension, thyromegaly, or carotid bruits. Lungs are clear to auscultation. Cardiac exam reveals regular rate and Rhythm. First and second heart sounds normal. No murmurs, rubs or gallops. Abdominal exam reveals normal bowel sounds, no masses, no organomegaly and no aortic enlargement. Extremities are nonedematous and both femoral and pedal pulses are normal. 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 No focal weakness. - Constitutional Vitals: Temp Pulse Resp BP Pulse Ox 98.3 F 72 18 105/58 97 05/09/17 08:15 05/09/17 08:15 05/09/17 08:15 05/09/17 08:15 05/09/17 00:03 General appearance: Present: no acute distress, well-nourished Results - Labs CBC & Chem 7: 05/09/17 05:00 05/09/17 05:00 Labs: Laboratory Last Values WBC 8.8 K/mm3 (4.5-11.0) 05/09/17 05:00 RBC 4.50 M/mm3 (3.65-5.03) 05/09/17 05:00 Hgb 13.7 gm/dl (11.8-15.2) 05/09/17 05:00 Hct 40.8 % (35.5-45.6) 05/09/17 05:00 MCV 91 fl (84-94) 05/09/17 05:00 MCH 30 pg (28-32) 05/09/17 05:00 MCHC 34 % (32-34) 05/09/17 05:00 RDW 13.5 % (13.2-15.2) 05/09/17 05:00 Plt Count 295 K/mm3 (140-440) 05/09/17 05:00 Lymph % (Auto) 11.3 % (13.4-35.0) L 05/09/17 05:00 [place] % (Auto) 4.9 % (0.0-7.3) 05/09/17 05:00 Eos % (Auto) 1.1 % (0.0-4.3) 05/09/17 05:00 Baso % (Auto) 0.2 % (0.0-1.8) 05/09/17 05:00 Lymph # 1.0 K/mm3 (1.2-5.4) L 05/09/17 05:00 [place] # 0.4 K/mm3 (0.0-0.8) 05/09/17 05:00 Eos # 0.1 K/mm3 (0.0-0.4) 05/09/17 05:00 Baso # 0.0 K/mm3 (0.0-0.1) 05/09/17 05:00 Add Manual Diff Complete 05/08/17 00:47 Total Counted 100 05/08/17 00:47 Seg Neutrophils % 82.5 % (40.0-70.0) H 05/09/17 05:00 Seg Neuts % (Manual) 85.0 % (40.0-70.0) H 05/08/17 00:47 Band Neutrophils % 4.0 % 05/08/17 00:47 Lymphocytes % (Manual) 9.0 % (13.4-35.0) L 05/08/17 00:47 Reactive Lymphs % (Man) 0 % 05/08/17 00:47 Monocytes % (Manual) 2.0 % (0.0-7.3) 05/08/17 00:47 Eosinophils % (Manual) 0 % (0.0-4.3) 05/08/17 00:47 Basophils % (Manual) 0 % (0.0-1.8) 05/08/17 00:47 Metamyelocytes % 0 % 05/08/17 00:47 Myelocytes % 0 % 05/08/17 00:47 Promyelocytes % 0 % 05/08/17 00:47 Blast Cells % 0 % 05/08/17 00:47 Nucleated RBC % Not Reportable 05/08/17 00:47 Seg Neutrophils # 7.3 K/mm3 (1.8-7.7) 05/09/17 05:00 Seg Neutrophils # Man 10.9 K/mm3 (1.8-7.7) H 05/08/17 00:47 Band Neutrophils # 0.5 K/mm3 05/08/17 00:47 Lymphocytes # (Manual) 1.2 K/mm3 (1.2-5.4) 05/08/17 00:47 Abs React Lymphs (Man) 0.0 K/mm3 05/08/17 00:47 Monocytes # (Manual) 0.3 K/mm3 (0.0-0.8) 05/08/17 00:47 Eosinophils # (Manual) 0.0 K/mm3 (0.0-0.4) 05/08/17 00:47 Basophils # (Manual) 0.0 K/mm3 (0.0-0.1) 05/08/17 00:47 Metamyelocytes # 0.0 K/mm3 05/08/17 00:47 Myelocytes # 0.0 K/mm3 05/08/17 00:47 Promyelocytes # 0.0 K/mm3 05/08/17 00:47 Blast Cells # 0.0 K/mm3 05/08/17 00:47 WBC Morphology Not Reportable 05/08/17 00:47 Hypersegmented Neuts Not Reportable 05/08/17 00:47 Hyposegmented Neuts Not Reportable 05/08/17 00:47 Hypogranular Neuts Not Reportable 05/08/17 00:47 Smudge Cells Not Reportable 05/08/17 00:47 Toxic Granulation Not Reportable 05/08/17 00:47 Toxic Vacuolation Not Reportable 05/08/17 00:47 Dohle Bodies Not Reportable 05/08/17 00:47 Pelger-Huet Anomaly Not Reportable 05/08/17 00:47 Niurka Rods Not Reportable 05/08/17 00:47 Platelet Estimate Appears normal 05/08/17 00:47 Clumped Platelets Not Reportable 05/08/17 00:47 Plt Clumps, EDTA Not Reportable 05/08/17 00:47 Large Platelets Not Reportable 05/08/17 00:47 Giant Platelets Not Reportable 05/08/17 00:47 Platelet Satelliting Not Reportable 05/08/17 00:47 Plt Morphology Comment Not Reportable 05/08/17 00:47 RBC Morphology Not Reportable 05/08/17 00:47 Dimorphic RBCs Not Reportable 05/08/17 00:47 Polychromasia Not Reportable 05/08/17 00:47 Hypochromasia Not Reportable 05/08/17 00:47 Poikilocytosis Not Reportable 05/08/17 00:47 Anisocytosis 1+ 05/08/17 00:47 Microcytosis Not Reportable 05/08/17 00:47 Macrocytosis Not Reportable 05/08/17 00:47 Spherocytes Not Reportable 05/08/17 00:47 Pappenheimer Bodies Not Reportable 05/08/17 00:47 Sickle Cells Not Reportable 05/08/17 00:47 Target Cells Not Reportable 05/08/17 00:47 Tear Drop Cells Not Reportable 05/08/17 00:47 Ovalocytes Not Reportable 05/08/17 00:47 Helmet Cells Not Reportable 05/08/17 00:47 [place] Bodies Not Reportable 05/08/17 00:47 [place] Rings Not Reportable 05/08/17 00:47 [place] Cells Not Reportable 05/08/17 00:47 Bite Cells Not Reportable 05/08/17 00:47 Crenated Cell Not Reportable 05/08/17 00:47 Elliptocytes Not Reportable 05/08/17 00:47 Acanthocytes (Spur) Not Reportable 05/08/17 00:47 Rouleaux Not Reportable 05/08/17 00:47 Hemoglobin C Crystals Not Reportable 05/08/17 00:47 Schistocytes Not Reportable 05/08/17 00:47 Malaria parasites Not Reportable 05/08/17 00:47 Nithin Bodies Not Reportable 05/08/17 00:47 Hem Pathologist Commnt No 05/08/17 00:47 PT 15.3 Sec. (12.2-14.9) H 05/08/17 11:19 INR 1.15 (0.87-1.13) H 05/08/17 11:19 APTT 26.7 Sec. (24.2-36.6) 05/08/17 11:19 Sodium 139 mmol/L (137-145) 05/09/17 05:00 Potassium 4.8 mmol/L (3.6-5.0) D 05/09/17 05:00 Chloride 99.9 mmol/L (98-107) 05/09/17 05:00 Carbon Dioxide 27 mmol/L (22-30) 05/09/17 05:00 Anion Gap 17 mmol/L 05/09/17 05:00 BUN 13 mg/dL (9-20) 05/09/17 05:00 Creatinine 0.7 mg/dL (0.8-1.5) L 05/09/17 05:00 Estimated GFR > 60 ml/min 05/09/17 05:00 BUN/Creatinine Ratio 19 % 05/09/17 05:00 Glucose 77 mg/dL (75-100) 05/09/17 05:00 Calcium 8.7 mg/dL (8.4-10.2) 05/09/17 05:00 Total Bilirubin 2.60 mg/dL (0.1-1.2) H 05/09/17 05:00 AST 109 units/L (5-40) H 05/09/17 05:00 ALT 408 units/L (7-56) H 05/09/17 05:00 Alkaline Phosphatase 342 units/L (35-129) H 05/09/17 05:00 Total Protein 6.8 g/dL (6.3-8.2) 05/09/17 05:00 Albumin 3.3 g/dL (3.9-5) L 05/09/17 05:00 Albumin/Globulin Ratio 0.9 % 05/09/17 05:00 Lipase 121 units/L (13-60) H 05/08/17 00:47 Urine Color Indira (Yellow) 05/08/17 Unknown Urine Turbidity Clear (Clear) 05/08/17 Unknown Urine pH 5.0 (5.0-7.0) 05/08/17 Unknown Ur Specific [place] 1.017 (1.003-1.030) 05/08/17 Unknown Urine Protein <15 mg/dl mg/dL (Negative) 05/08/17 Unknown Urine Glucose (UA) Neg mg/dL (Negative) 05/08/17 Unknown Urine Ketones Tr mg/dL (Negative) 05/08/17 Unknown Urine Blood Neg (Negative) 05/08/17 Unknown Urine Nitrite Neg (Negative) 05/08/17 Unknown Urine Bilirubin Mod (Negative) 05/08/17 Unknown Urine Ictotest Positive (Negative) 05/08/17 Unknown Urine Urobilinogen 2.0 mg/dL (<2.0) 05/08/17 Unknown Ur Leukocyte Esterase Neg (Negative) 05/08/17 Unknown Urine WBC (Auto) 1.0 /HPF (0.0-6.0) 05/08/17 Unknown Urine RBC (Auto) < 1.0 /HPF (0.0-6.0) 05/08/17 Unknown U Epithel Cells (Auto) < 1.0 /HPF (0-13.0) 05/08/17 Unknown Urine Mucus Few /HPF 05/08/17 Unknown Transaminases, alkaline phosphatase and bilirubin trending down - Imaging and Cardiology Imaging and Cardiology: MRCP was done dilation of common bile duct 11 mm likely due to cholecystectomy
[2017-05-09] MEDS: PROTONIX IV SCH (14:12)
--- NOTE | 2017-05-09 16:19 | Progress Note ---
Assessment and Plan 1. Abd pain - resolved now. C/w intermittent biliary colic and obstruction, possibly Type 1 SOD. No retained CBD stone noted on MRCP. - will do ERCP with ES 2. Elevated LFTs - fluctuating. Hep serologies negative. Given pain, suspect intermittent obstruction. Discussed situation with pt using Language line - #[id number]. Subjective Date of service: 05/09/17 Interval history: Abd pain is resolved. Objective - Constitutional Vitals: Vital Signs - 12hr 05/09/17 08:15 Temperature 98.3 F Pulse Rate 72 Respiratory 18 Rate Blood Pressure 105/58 [Left] General appearance: Present: no acute distress - EENT Eyes: PERRL, EOM intact, scleral icterus ENT: hearing intact - Respiratory Respiratory effort: normal Respiratory: bilateral: CTA - Cardiovascular Rhythm: regular Heart Sounds: Present: S1 & S2 - Gastrointestinal General gastrointestinal: Present: soft, non-tender - Labs CBC & Chem 7: 05/09/17 05:00 05/09/17 05:00 Labs: Abnormal lab results 05/09/17 05/09/17 Range/Units 05:00 05:00 Lymph % (Auto) 11.3 L (13.4-35.0) % Lymph # 1.0 L (1.2-5.4) K/mm3 Seg Neutrophils % 82.5 H (40.0-70.0) % Creatinine 0.7 L (0.8-1.5) mg/dL Total Bilirubin 2.60 H (0.1-1.2) mg/dL AST 109 H (5-40) units/L ALT 408 H (7-56) units/L Alkaline Phosphatase 342 H (35-129) units/L Albumin 3.3 L (3.9-5) g/dL
[2017-05-09] MEDS: D5NS 1,000 ML IV SCH (17:41)
--- NOTE | 2017-05-09 21:04 | Consultation ---
The patient was originally seen on 05/08/2017, but hand loom weaver line was finally accessed and used on 05/09/2017 to complete the consult. REASON FOR CONSULTATION: Abdominal pain. HISTORY OF PRESENT ILLNESS: The patient is a 56-year-old [place] male who presented to the Emergency Room on 05/08/2017 with complaints of recurrent abdominal pain. He had come in on 04/27/2017 with similar pain with nausea, but no vomiting. He had an extensive workup in the Emergency Room showing abnormal liver enzymes and hepatitis serologies were done that were negative. The pain improved in the ER and the patient was discharged to home with recommendations for outpatient evaluation. Unfortunately, before it could happen, the pain recurred and he represented to the ER. Pain has now resolved. There were no clear precipitants or relievers. The patient denies prior similar pains, but he does have occasional heartburn. He is status post cholecystectomy years ago and states that was complicated with a 10-day postop course with epigastric and left upper quadrant pain at that time, which was slightly different than what he is having now. He denies any known history of liver disease otherwise. There is no significant alcohol history. He denies fevers, chills, sweats or weight loss. There has been no GI bleeding. ALLERGIES: He has no known drug allergies. MEDICATIONS: He takes no medications at home. PAST SURGICAL HISTORY: He has a history of: 1. Cholecystectomy. 2. Right-sided thoracotomy for some type of infection. FAMILY HISTORY: Noncontributory. SOCIAL HISTORY: The patient's family is in [place]. He denies tobacco or ethanol usage of any significance. REVIEW OF SYSTEMS: Otherwise, noncontributory. PHYSICAL EXAMINATION: GENERAL: This is a middle-aged male lying in bed, looking comfortable, in no apparent distress. VITAL SIGNS: Temperature is 98.3, pulse 72, blood pressure 105/58. HEENT: He is mildly icteric. Pupils are round and reactive. Oropharynx is clear. LUNGS: Clear bilaterally to auscultation. CARDIOVASCULAR: Regular with no extra heart sounds. ABDOMEN: Soft with good bowel sounds and no organomegaly or tenderness to palpation. RECTAL: Deferred. EXTREMITIES: Reveal no edema. NEUROLOGIC: He is alert, oriented x 3. Grossly nonfocal. LABORATORY DATA: White count today is 8.8, hemoglobin 13.7, hematocrit 40.8, MCV of 91, platelet count 295,000. Sodium is 139, potassium 4.8, chloride 100, bicarbonate 27, BUN 13, creatinine 0.7, glucose is 77. AST today is 109 and was 387 yesterday and was 85 on 04/27/2017. His ALT today is 408 and yesterday was 636 and on 04/27/2017 it was 545, alkaline phosphatase today is 342 and yesterday was 359 with alkaline phosphatase of 290 on 04/27/2017. His total bilirubin today is 2.6 and yesterday was 5.0 and it was 6.5 on 04/27/2017. Lipase is mildly elevated at 121. Hepatitis serologies were negative. IMAGING STUDIES: An MRCP was performed, which shows a dilated common bile duct to 11 mm, but it shows no filling defects and shows him to be status post cholecystectomy. A CT of the abdomen was performed on 04/28/2017, which was basically normal as was a gallbladder abdominal ultrasound. IMPRESSION: Abdominal pain/fluctuating liver enzymes -- findings are most consistent with intermittent biliary obstruction. This is particularly in light of the patient's abdominal pain. The patient does have dilated common bile duct and is status post cholecystectomy, suggesting that he may have papillary stenosis. There is no common bile duct stone noted on MRCP, but there is still a possibility of one that it does exist. I do not believe these findings are consistent with a hepatocellular process as I would not expect a abdominal pain with this. Indications, risks and benefits of ERCP and possible lack of success in resolving his symptoms that were explained to the patient. He has agreed to proceed with the ERCP, understanding that there are risks of pancreatitis, bleeding, perforation, and reaction to medications, and also realizing that there is no guarantee that this will successfully alleviate his symptomatology. We will therefore proceed with ERCP. Please note that history and physical and discussion was held with the patient using the hand loom weaver line with hand loom weaver [id number]. JOB# [id number] HRC/NTS
[2017-05-09] MEDS: PEPCID IV SCH (21:12)
--- NOTE | 2017-05-10 07:56 | Progress Note ---
Assessment and Plan Assessment and plan: 56-year-old male presented to the emergency department complaining of epigastric pain and jaundice Suspected Common bile duct obstruction Elevated transaminitis Hyper bilirubinemia - Common bile duct is dilated - Transaminitis, alkaline phosphatase, bilirubin is trending down - Epigastric Pain is resolving - MRCP shows CBD dilation - GI will do ERCP with ES DVT prophylaxis - SCDs because of the mild elevation of INR Disposition - GI will do ERCP with ES History Interval history: Patient was seen and evaluated this morning, I use language line and examined the patient patient denied abdominal pain, nausea and vomiting. I have explained the management plan. Hospitalist Physical - Physical exam Narrative exam: Not in cardiopulmonary distress. The patient appeared well nourished and normally developed. Vital signs as documented. Head exam is unremarkable. No scleral icterus . Neck is without jugular venous distension, thyromegaly, or carotid bruits. Lungs are clear to auscultation. Cardiac exam reveals regular rate and Rhythm. First and second heart sounds normal. No murmurs, rubs or gallops. Abdominal exam reveals normal bowel sounds, no masses, no organomegaly and no aortic enlargement. Extremities are nonedematous and both femoral and pedal pulses are normal. PAEDIATRIC SURGEON: Alert and oriented 3. No focal weakness. - Constitutional Vitals: Temp Pulse Resp BP Pulse Ox 98.5 F 67 16 95/59 96 05/10/17 00:21 05/10/17 00:21 05/10/17 00:21 05/10/17 00:21 05/10/17 00:21 General appearance: Present: no acute distress Results - Labs CBC & Chem 7: 05/09/17 05:00 05/09/17 05:00 Labs: Laboratory Last Values WBC 8.8 K/mm3 (4.5-11.0) 05/09/17 05:00 RBC 4.50 M/mm3 (3.65-5.03) 05/09/17 05:00 Hgb 13.7 gm/dl (11.8-15.2) 05/09/17 05:00 Hct 40.8 % (35.5-45.6) 05/09/17 05:00 MCV 91 fl (84-94) 05/09/17 05:00 MCH 30 pg (28-32) 05/09/17 05:00 MCHC 34 % (32-34) 05/09/17 05:00 RDW 13.5 % (13.2-15.2) 05/09/17 05:00 Plt Count 295 K/mm3 (140-440) 05/09/17 05:00 Lymph % (Auto) 11.3 % (13.4-35.0) L 05/09/17 05:00 [place] % (Auto) 4.9 % (0.0-7.3) 05/09/17 05:00 Eos % (Auto) 1.1 % (0.0-4.3) 05/09/17 05:00 Baso % (Auto) 0.2 % (0.0-1.8) 05/09/17 05:00 Lymph # 1.0 K/mm3 (1.2-5.4) L 05/09/17 05:00 [place] # 0.4 K/mm3 (0.0-0.8) 05/09/17 05:00 Eos # 0.1 K/mm3 (0.0-0.4) 05/09/17 05:00 Baso # 0.0 K/mm3 (0.0-0.1) 05/09/17 05:00 Add Manual Diff Complete 05/08/17 00:47 Total Counted 100 05/08/17 00:47 Seg Neutrophils % 82.5 % (40.0-70.0) H 05/09/17 05:00 Seg Neuts % (Manual) 85.0 % (40.0-70.0) H 05/08/17 00:47 Band Neutrophils % 4.0 % 05/08/17 00:47 Lymphocytes % (Manual) 9.0 % (13.4-35.0) L 05/08/17 00:47 Reactive Lymphs % (Man) 0 % 05/08/17 00:47 Monocytes % (Manual) 2.0 % (0.0-7.3) 05/08/17 00:47 Eosinophils % (Manual) 0 % (0.0-4.3) 05/08/17 00:47 Basophils % (Manual) 0 % (0.0-1.8) 05/08/17 00:47 Metamyelocytes % 0 % 05/08/17 00:47 Myelocytes % 0 % 05/08/17 00:47 Promyelocytes % 0 % 05/08/17 00:47 Blast Cells % 0 % 05/08/17 00:47 Nucleated RBC % Not Reportable 05/08/17 00:47 Seg Neutrophils # 7.3 K/mm3 (1.8-7.7) 05/09/17 05:00 Seg Neutrophils # Man 10.9 K/mm3 (1.8-7.7) H 05/08/17 00:47 Band Neutrophils # 0.5 K/mm3 05/08/17 00:47 Lymphocytes # (Manual) 1.2 K/mm3 (1.2-5.4) 05/08/17 00:47 Abs React Lymphs (Man) 0.0 K/mm3 05/08/17 00:47 Monocytes # (Manual) 0.3 K/mm3 (0.0-0.8) 05/08/17 00:47 Eosinophils # (Manual) 0.0 K/mm3 (0.0-0.4) 05/08/17 00:47 Basophils # (Manual) 0.0 K/mm3 (0.0-0.1) 05/08/17 00:47 Metamyelocytes # 0.0 K/mm3 05/08/17 00:47 Myelocytes # 0.0 K/mm3 05/08/17 00:47 Promyelocytes # 0.0 K/mm3 05/08/17 00:47 Blast Cells # 0.0 K/mm3 05/08/17 00:47 WBC Morphology Not Reportable 05/08/17 00:47 Hypersegmented Neuts Not Reportable 05/08/17 00:47 Hyposegmented Neuts Not Reportable 05/08/17 00:47 Hypogranular Neuts Not Reportable 05/08/17 00:47 Smudge Cells Not Reportable 05/08/17 00:47 Toxic Granulation Not Reportable 05/08/17 00:47 Toxic Vacuolation Not Reportable 05/08/17 00:47 Dohle Bodies Not Reportable 05/08/17 00:47 Pelger-Huet Anomaly Not Reportable 05/08/17 00:47 Niurka Rods Not Reportable 05/08/17 00:47 Platelet Estimate Appears normal 05/08/17 00:47 Clumped Platelets Not Reportable 05/08/17 00:47 Plt Clumps, EDTA Not Reportable 05/08/17 00:47 Large Platelets Not Reportable 05/08/17 00:47 Giant Platelets Not Reportable 05/08/17 00:47 Platelet Satelliting Not Reportable 05/08/17 00:47 Plt Morphology Comment Not Reportable 05/08/17 00:47 RBC Morphology Not Reportable 05/08/17 00:47 Dimorphic RBCs Not Reportable 05/08/17 00:47 Polychromasia Not Reportable 05/08/17 00:47 Hypochromasia Not Reportable 05/08/17 00:47 Poikilocytosis Not Reportable 05/08/17 00:47 Anisocytosis 1+ 05/08/17 00:47 Microcytosis Not Reportable 05/08/17 00:47 Macrocytosis Not Reportable 05/08/17 00:47 Spherocytes Not Reportable 05/08/17 00:47 Pappenheimer Bodies Not Reportable 05/08/17 00:47 Sickle Cells Not Reportable 05/08/17 00:47 Target Cells Not Reportable 05/08/17 00:47 Tear Drop Cells Not Reportable 05/08/17 00:47 Ovalocytes Not Reportable 05/08/17 00:47 Helmet Cells Not Reportable 05/08/17 00:47 [place] Bodies Not Reportable 05/08/17 00:47 [place] Rings Not Reportable 05/08/17 00:47 [place] Cells Not Reportable 05/08/17 00:47 Bite Cells Not Reportable 05/08/17 00:47 Crenated Cell Not Reportable 05/08/17 00:47 Elliptocytes Not Reportable 05/08/17 00:47 Acanthocytes (Spur) Not Reportable 05/08/17 00:47 Rouleaux Not Reportable 05/08/17 00:47 Hemoglobin C Crystals Not Reportable 05/08/17 00:47 Schistocytes Not Reportable 05/08/17 00:47 Malaria parasites Not Reportable 05/08/17 00:47 Nithin Bodies Not Reportable 05/08/17 00:47 Hem Pathologist Commnt No 05/08/17 00:47 PT 15.3 Sec. (12.2-14.9) H 05/08/17 11:19 INR 1.15 (0.87-1.13) H 05/08/17 11:19 APTT 26.7 Sec. (24.2-36.6) 05/08/17 11:19 Sodium 139 mmol/L (137-145) 05/09/17 05:00 Potassium 4.8 mmol/L (3.6-5.0) D 05/09/17 05:00 Chloride 99.9 mmol/L (98-107) 05/09/17 05:00 Carbon Dioxide 27 mmol/L (22-30) 05/09/17 05:00 Anion Gap 17 mmol/L 05/09/17 05:00 BUN 13 mg/dL (9-20) 05/09/17 05:00 Creatinine 0.7 mg/dL (0.8-1.5) L 05/09/17 05:00 Estimated GFR > 60 ml/min 05/09/17 05:00 BUN/Creatinine Ratio 19 % 05/09/17 05:00 Glucose 77 mg/dL (75-100) 05/09/17 05:00 Calcium 8.7 mg/dL (8.4-10.2) 05/09/17 05:00 Total Bilirubin 2.60 mg/dL (0.1-1.2) H 05/09/17 05:00 AST 109 units/L (5-40) H 05/09/17 05:00 ALT 408 units/L (7-56) H 05/09/17 05:00 Alkaline Phosphatase 342 units/L (35-129) H 05/09/17 05:00 Total Protein 6.8 g/dL (6.3-8.2) 05/09/17 05:00 Albumin 3.3 g/dL (3.9-5) L 05/09/17 05:00 Albumin/Globulin Ratio 0.9 % 05/09/17 05:00 Lipase 121 units/L (13-60) H 05/08/17 00:47 Urine Color Indira (Yellow) 05/08/17 Unknown Urine Turbidity Clear (Clear) 05/08/17 Unknown Urine pH 5.0 (5.0-7.0) 05/08/17 Unknown Ur Specific [place] 1.017 (1.003-1.030) 05/08/17 Unknown Urine Protein <15 mg/dl mg/dL (Negative) 05/08/17 Unknown Urine Glucose (UA) Neg mg/dL (Negative) 05/08/17 Unknown Urine Ketones Tr mg/dL (Negative) 05/08/17 Unknown Urine Blood Neg (Negative) 05/08/17 Unknown Urine Nitrite Neg (Negative) 05/08/17 Unknown Urine Bilirubin Mod (Negative) 05/08/17 Unknown Urine Ictotest Positive (Negative) 05/08/17 Unknown Urine Urobilinogen 2.0 mg/dL (<2.0) 05/08/17 Unknown Ur Leukocyte Esterase Neg (Negative) 05/08/17 Unknown Urine WBC (Auto) 1.0 /HPF (0.0-6.0) 05/08/17 Unknown Urine RBC (Auto) < 1.0 /HPF (0.0-6.0) 05/08/17 Unknown U Epithel Cells (Auto) < 1.0 /HPF (0-13.0) 05/08/17 Unknown Urine Mucus Few /HPF 05/08/17 Unknown
[2017-05-10] MEDS: D5NS 1,000 ML IV SCH (08:08)
[2017-05-10] MEDS: PEPCID IV SCH ×2 (10:00→21:05)
[2017-05-10] MEDS ORDERED: NACL 0.9% 1000 ML 1,000 ML IV SCH (11:00)
[2017-05-10] MEDS ORDERED: NACL 0.9% 1000 ML 1,000 ML ONE (12:10)
[2017-05-10] MEDS ORDERED: WATER FOR IRRIG STERILE IR ONE (12:25)
[2017-05-10] MEDS ORDERED: NACL 0.9% 100 ML ONE (12:26)
--- NOTE | 2017-05-10 13:41 | Anesthesia Consultation ---
Anesthesia Consult and Med Hx Date of service: 05/10/17 - Airway Anesthetic Teeth Evaluation: Good ROM Head & Neck: Adequate Mental/Hyoid Distance: Adequate Mallampati Class: Class II Intubation Access Assessment: Probably Good - Pulmonary Exam CTA: Yes - Cardiac Exam Cardiac Exam: RRR - Pre-Operative Health Status ASA Pre-Surgery Classification: ASA1 Proposed Anesthetic Plan: MAC - Pulmonary Hx Smoking: Yes (quit 25 yrs ago) Hx Asthma: No - Cardiovascular System Hx Hypertension: No Hx Heart Attack/AMI: No - Central Nervous System Hx Seizures: No CVA: No - Gastrointestinal Hx Gastroesophageal Reflux Disease: Yes (OTC meds) - Endocrine Hx Renal Disease: No Hx Liver Disease: No Hx Non-Insulin Dependent Diabetes: No - Other Systems Hx Cancer: No - Additional Comments Anesthesia Medical History Comments: NAC
--- NOTE | 2017-05-10 13:42 | Anesthesia Day of Surgery ---
Anesthesia Day of Surgery - Day of Surgery Patient Examined: Yes Patient H&P Reviewed: Yes Patient is NPO: Yes
[2017-05-10] MEDS ORDERED: VERSED ONE (14:00)
[2017-05-10] MEDS ORDERED: DIPRIVAN 10 MG/ML IV ONE ×4 (14:00→14:28)
[2017-05-10] MEDS ORDERED: SUBLIMAZE ONE (14:00)
--- NOTE | 2017-05-10 15:58 | Post Operative Note ---
Pre-op diagnosis: Type 1 SOD Post-op diagnosis: same Findings: 1. Normal papilla 2. Normal PD 3. CBD s/p CCX, dilated to 12 mm. Normal in course, with no filling defects. 6 mm biliary sphincterotomy done, and duct swept with balloon to ensure clearance. Procedure: ERCP with sphincterotomy Anesthesia: MAC Surgeon: FRANDY NAVA Estimated blood loss: minimal Pathology: none Condition: stable Disposition: floor (Monitor for complications. Clears after 4 hrs, then adv as tolerated. Monitor LFTs for normalization, as outpatient.)
--- NOTE | 2017-05-10 15:59 | Post Anesthesia Evaluation ---
- Post Anesthesia Evaluation Patient Participated: Yes Airway Patent: Yes Stable Respiratory Function: Yes Temp > 96.8F: Yes Pain Manageable: Yes Adequeate Hydration: Yes Anesthesia Complications: No
--- NOTE | 2017-05-10 18:26 | Operative Report ---
PROCEDURE: ERCP with sphincterotomy. PREOPERATIVE DIAGNOSIS: Type I sphincter of Oddi dysfunction. POSTOPERATIVE DIAGNOSIS: Type I sphincter of Oddi dysfunction. SEDATION: MAC by Anesthesia. HISTORY: The patient is a 56-year-old [place] man with a history of intermittent abdominal pain for the last 2 weeks along with some abnormal liver enzymes. Workup including an MRCP showed no biliary obstruction, though the bile duct was dilated. He is status post cholecystectomy. Procedure, indication, risks, and benefits were explained then consent was obtained. DESCRIPTION OF PROCEDURE: The patient was placed on abdomen on fluoroscopy table and sedated. Moneero video duodenoscope was passed through the mouth and oropharynx into the descending duodenum. Scope was then gradually withdrawn with closed inspection of mucosa. Major papilla was visualized. Selective cannulation of the common bile duct was achieved after initial cannulation of the pancreatic duct and a precut papillotomy were made. FINDINGS: 1. Normal appearing major papilla. 2. Pancreatic duct is normal in course and caliber. 3. Common bile duct is status post cholecystectomy and dilated at 12 mm. A 6 mm biliary sphincterotomy was performed to completion after the initial precut. Then, the duct was swept with a 12 mm balloon, though no filling defects were identified. There was no stone returned. The patient tolerated the procedure well without immediate complications. ESTIMATED BLOOD LOSS: Minimal. No stents were left in place. IMPRESSION: 1. Type I sphincter of Oddi dysfunction - as noted by dilated post-cholecystectomy biliary tree with elevated liver enzymes and abdominal pain. Sphincterotomy was done. Duct was swept to ensure that there were no stones left there. 2. Normal pancreatic duct. PLAN: 1. Monitor for complications, advance diet, and discharge when tolerates p.o. 2. Follow up LFTs as an outpatient to ensure that they normalize. If not, further evaluation will be warranted. Hepatitis serologies were negative. JOB# [id number] HRC/NTS
--- NOTE | 2017-05-11 08:08 | Fluoroscopy Report ---
ELEVEN FLUOROSCOPIC IMAGES AT ERCP: 05/10/17 12:45:00 CLINICAL: Abdominal pain and elevated LFTs. FINDINGS: Opacification of a dilated CBD and dilated intrahepatic bile ducts. Initial images demonstrate obstruction at the distal CBD and subsequent images demonstrate passage of the wire and a nondilated CBD on the final image. Normal pancreatic duct. A more detailed, please refer to the operative report.
[2017-05-11] MEDS: PEPCID IV SCH (09:25)
[2017-05-11 12:12] LABS: Alanine Aminotransferase 195 units/L (7-56); Albumin 3.5 g/dL (3.9-5); Albumin/Globulin Ratio 1.1 %; Alkaline Phosphatase 268 units/L (35-129); Anion Gap 14 mmol/L; BUN/Creatinine Ratio 10; Blood Urea Nitrogen 6 mg/dL (9-20); Calcium 8.4 mg/dL (8.4-10.2); Carbon Dioxide 26 mmol/L (22-30); Chloride 105.2 mmol/L (98-107); Glucose 94 mg/dL (75-100); Potassium 3.8 mmol/L (3.6-5.0); Sodium 141 mmol/L (137-145); Total Protein 6.7 g/dL (6.3-8.2)
--- NOTE | 2017-05-11 12:13 | Gastroenterology Progress Note ---
Assessment and Plan 1.abd pain 2.elevated LFTs -abd pain is now resolved- c/w biliary colic and obstruction, possibly Type 1 SOB -s/p ERCP with sphincterotomy and duct swept with balloon yesterday showed normal papilla, normal PD, CBD s/p CCX, diated to 12mm, normal in course with no filling defects -elevaated LFTs-trending down -clinically pt is feeling better, denies abd pain or N/V -advance diet -pt is okay to be d/c per GI standpoint with f/u labs drawn within 1 week at PCP office or in our office -no further recommendations at this time -will sign off Subjective Date of service: 05/11/17 Principal diagnosis: elevated LFTs Interval history: Patient resting in bed. No distress or events overnight noted. Denies abd pain or N/V. Tolerating diet. Objective - Constitutional Vitals: Temp Pulse Resp BP Pulse Ox 98.0 F 59 L 19 112/68 98 05/11/17 07:53 05/11/17 07:53 05/11/17 07:53 05/11/17 07:53 05/11/17 07:53 General appearance: no acute distress, well-nourished - EENT Eyes: PERRL, EOM intact ENT: hearing intact - Respiratory Respiratory: bilateral: CTA - Cardiovascular Rhythm: regular Heart Sounds: Present: S1 & S2 - Extremities Extremities: No edema - Gastrointestinal General gastrointestinal: Present: soft, non-tender, non-distended, normal bowel sounds - Integumentary Integumentary: Present: warm, dry - Neurologic Neurological: alert and oriented x3 - Labs CBC & Chem 7: 05/09/17 05:00 05/11/17 11:40
--- NOTE | 2017-05-11 14:57 | Discharge Summary ---
Providers - Providers Date of Admission: 05/08/17 11:15 Date of discharge: 05/11/17 Attending physician: KAREN Lay Primary care physician: ÁNGEL WALLS MD Hospitalization Condition: Stable Disposition: DC-01 TO HOME OR SELFCARE - Discharge Diagnoses (1) Transaminitis Status: Acute (2) Common bile duct (CBD) obstruction Status: Acute (3) DVT prophylaxis Status: Acute Core Measure Documentation - Palliative Care Palliative Care/ Comfort Measures: Not Applicable - Core Measures Any of the following diagnoses?: none Exam - Physical Exam Narrative exam: Lying comfortably - Constitutional Vitals: Temp Pulse Resp BP Pulse Ox 98.0 F 59 L 19 112/68 98 05/11/17 07:53 05/11/17 07:53 05/11/17 07:53 05/11/17 07:53 05/11/17 07:53 General appearance: Present: no acute distress, well-nourished - EENT Eyes: Present: PERRL ENT: hearing intact, clear oral mucosa - Neck Neck: Present: supple, normal ROM - Respiratory Respiratory effort: normal Respiratory: bilateral: CTA - Cardiovascular Heart Sounds: Present: S1 & S2. Absent: rub, click - Extremities Extremities: pulses symmetrical, No edema Peripheral Pulses: within normal limits - Abdominal General gastrointestinal: Present: soft, non-tender, non-distended, normal bowel sounds Male genitourinary: Present: normal - Integumentary Integumentary: Present: clear, warm, dry - Musculoskeletal Musculoskeletal: gait normal, strength equal bilaterally - Psychiatric Psychiatric: appropriate mood/affect, intact judgment & insight - Neurologic Neurologic: CNII-XII intact, moves all extremities Plan Activity: no restrictions Weight Bearing Status: Full Weight Bearing Diet: regular Follow up with: PRIMARY CAREMD [Primary Care Provider] - 7 Days FRANDY LAY MD [Staff Physician] - 7 Days
[2017-05-11 15:45] VITALS: BP 133/78
[2017-05-12] MEDS ORDERED: PEPCID PO SCH (10:00)
== END 2017-05-11 17:00 | disposition home or self-care (01) | DRG 445 ==
LOC: ED 23:49 → 3A 05-08 11:15
PROVIDERS: ADMIT Internal Medicine; ATTEND Internal Medicine
PROC: BF141ZZ Fluoroscopy of Gallbladder, Bile Ducts and Pancreatic Ducts using Low Osmolar Contrast (ICD-10-PCS; 2017-05-08)
PROC: 0F798ZZ Dilation of Common Bile Duct, Via Natural or Artificial Opening Endoscopic (ICD-10-PCS; principal; 2017-05-10)
DX: K80.31 Calculus of bile duct with cholangitis, unspecified, with obstruction (principal); R17 Unspecified jaundice; R74.0 Nonspecific elevation of levels of transaminase and lactic acid dehydrogenase [LDH]; K21.9 Gastro-esophageal reflux disease without esophagitis; Z87.891 Personal history of nicotine dependence; Z90.49 Acquired absence of other specified parts of digestive tract
CPT/HCPCS: 36415; 74181; 74330; 80053; 81001; 83690; 85007; 85025; 85610; 85730; 86038; 96361; 96374; 96375; C1726; C9113; J2250; J2270; J2405; J2704; J3010; J7030; J7042